=== PATIENT | female | born 1970 | race Caucasian/White ===

== ENCOUNTER → 2021-09-08 | Outpatient (CLI) | payer OTHER ==
[~2021-09-08] MED LIST: ALBUTEROL1.25 MG/3 INH; BREO ELLIPTA 21 EACH INH; DYAZIDE 37.5/251 EA PO; LASIX20 MG PO; MULTIVITAMINS1 EAC1 PO; SINGULAIR10 MG PO; TOPAMAX100 MG PO; VENTOLIN HFA 66.7 GM INH; VITAMIN D35000 UNI1 PO
[2021-09-08 09:42] LABS: BUN/CREATININE RATIO 25 (0-10)
== END ==
LOC: LAB 08:51
PROVIDERS: Internal Medicine Nephrology
DX: R80.9 Proteinuria, unspecified (principal)
CPT/HCPCS: 36415; 80053

== ENCOUNTER → 2021-11-04 | Outpatient (CLI) | payer OTHER | LOC: MAMO 09:30 | DX: Z12.31 Encounter for screening mammogram for malignant neoplasm of breast (principal) | CPT/HCPCS: 77063; 77067 ==